=== PATIENT | female | born 1995 | race Caucasian/White ===

== ENCOUNTER → 2019-06-04 11:40 | Outpatient (BNVA) | payer OTHER, SELFPAY | PROVIDERS: Family Provider Family Medicine; PCP Family Medicine; Visit Provider Obstetrics & Gynecology | DX: Z32.01 Encounter for pregnancy test, result positive (principal) | CPT/HCPCS: 81025 ==

== ENCOUNTER → 2019-06-18 10:55 | Outpatient (BNVA) | payer OTHER, SELFPAY | PROVIDERS: Family Provider Family Medicine; PCP Family Medicine; Visit Provider Nurse Practitioner Women's Health | DX: Z01.89 Encounter for other specified special examinations (principal) | CPT/HCPCS: 84315 ==

== ENCOUNTER → 2019-07-02 15:55 | Outpatient (BNVA) | payer OTHER, SELFPAY | PROVIDERS: Family Provider Family Medicine; PCP Family Medicine; Visit Provider Obstetrics & Gynecology | DX: Z34.00 Encounter for supervision of normal first pregnancy, unspecified trimester (principal) | CPT/HCPCS: 80307; 82950; 84315; 84443; 85027; 86592; 86762; 86803; 86850; 86900; 87086; 87340; 87806 ==

== ENCOUNTER 2019-07-06 09:15 | Outpatient (CLI) | payer OTHER, SELFPAY ==
--- NOTE | 2019-07-06 | US_ITS ---
WS: [id number] ULTRASOUND EARLY TECHNIQUE: Transabdominal sonography of the pelvis was performed. Followed by transvaginal sonography to better evaluate the uterus and ovaries. CLINICAL INFORMATION: 10 WEEK GESTATION OF LMP: ? Beta hCG: Unknown. COMPARISON: None. FINDINGS: UTERUS AND GESTATIONAL SAC Intrauterine gestations: Estimated gestational age: 10 weeks 3 days Yolk sac: Present . heart motion: 173 BPM. Subchorionic hemorrhage: None. OVARIES Right ovary: Normal. Left ovary: Normal. FREE FLUID None. 2. Estimated gestational age: 10 weeks 3 days 3. Movement and cardiac activity visualized 4. Ovaries are normal. US/US OB <= 14 weeks fetus [id number] IMPRESSION: 1. Single live intrauterine with pole.
== END 2019-07-06 09:16 | disposition home or self-care (01) ==
PROVIDERS: Family Provider Family Medicine; PCP Family Medicine; Visit Provider Nurse Practitioner Family
DX: Z76.89 Persons encountering health services in other specified circumstances (principal)

== ENCOUNTER 2020-01-27 15:10 | Inpatient (IN) | payer OTHER, SELFPAY ==
[2020-01-27] VITALS (81 sets, daily range): BP systolic 0–148; BP diastolic 0–86; PULSE 68–212; RESP 18; TEMP 36.4–37.1; O2SAT 99–100; BMI 39.1
[2020-01-27] MEDS: dextrose 5%-lactated ringers 1,000 ML 125 ML IV (15:48)
[2020-01-27 17:04] LABS: Basophils % 0.2 %; Eosinophils % 0.3 %; Hematocrit 35.7 % (37.0-47.0); Hemoglobin 12.3 g/dL (11.5-15.3); Lymphocytes # 1.9 10^3/uL (0.8-4.8); Lymphocytes % 14.4 %; Mean Corpuscular HGB Conc 34.5 g/dL (30.0-36.0); Mean Corpuscular Hemoglobin 32.3 pg (28.0-34.0); Mean Corpuscular Volume 93.7 fL (81-99); Mean Platelet Volume 10.4 fL (7.4-10.4); Monocytes % 7.9 %; Neutrophils # 10.09 10^3/uL (1.8-7.7); Neutrophils % 76.8 %; Nucleated Red Blood Cells % 0 %; Platelet Count 233 10^3/cmm (130-400); Red Blood Count 3.81 10^6/uL (4.1-5.3); White Blood Count 13.1 10^3/uL (4.0-10.0)
[2020-01-27] MEDS: lactated ringers 1,000 ML 999 ML IV ×3 (18:15→22:51)
--- NOTE | 2020-01-27 18:30 | P.ANESASSM_ITS ---
Pre-Anesthetic Assessment Pre-Anesthetic Assessment: Height/Weight: Height 1.75 m Weight 120.202 kg Temp Pulse BP Pulse Ox 98.1 F 110 H 97/70 99 01/27/20 16:00 01/27/20 18:26 01/27/20 18:26 01/27/20 18:25 Preop Diagnosis: Labor Pain Proposed Procedure: PAOLO Was Beta Adonis taken within 24 hours: N/A Last Intake: 12:00 Social: Social History: No alcohol and No tobacco Exam: Pre-Anes Outpt Exam: alert, oriented x 3, clear to auscultation bilaterally and regular rate & rhythm Airway: Submandibular: WNL Cervical ROM: WNL MP: 2 Dentition: Full History/ROS: No significant history except as noted and No significant complaints CV/HEM: CV/HEM: None reported : : None reported Hepatic: Hepatic: None reported GI: GI: None reported Metabolic: Metabolic: None reported Musc/skel: Musc/skel: None reported Neuropsych: Neuropsych: Depression Anesthetic Plan: ASA status: 2 Anesthesia: Anesthesia Evaluation and Regional (specify below) Risk of > 500 ml blood loss (7ml/kg in children): No Meds/Allergies Current Medications: Current Medications Generic Name Dose Route Start Last Admin Trade Name Freq PRN Reason Stop Dose Admin Dextrose/Lactated Ringer's 1,000 mls @ 125 m ls/hr 01/27/20 15:15 01/27/20 15:48 Dextrose 5%-Lact ated Ringers IV 125 mls/hr .Q8H PRESTON Administration Lactated Ringer's 1,000 mls @ 999 m ls/hr 01/27/20 17:37 01/27/20 18:15 Lactated Ringers IV 999 mls/hr .Q1H1M PRN Administration ANESTHESIA Ropivacaine 200 mg in 100 mls @ 13 mls/hr 01/27/20 17:45 01/27/20 18:15 Naropin Premix EPIDURAL 13 mls/hr .Q7H42M PRESTON Administration PFSH Anesthesia PFSH: Medical History (Updated 07/02/19 @ 15:03 by Wenceslao Briseno MD) Anxiety was taking zoloft-- stopped use early May 2019 Obesity Surgical History (Updated 07/06/19 @ 19:23 by Wenceslao Briseno MD) History of appendectomy (~2009) Age 14 Family History (Updated 07/06/19 @ 19:24 by Wenceslao Briseno MD) Father Hypertension Grandfather Heart disease Maternal Grandmother Breast cancer Paternal Social History (Updated 07/06/19 @ 19:24 by Wenceslao Briseno MD) Smoking and tobacco status: never smoked Alcohol intake: former Former alcohol use details: social use prior to Female Reproductive History: : 1 Data Anesthesia CBC & Chem 7: 01/27/20 15:30 Other Labs: Laboratory Results - last 48 hr 01/27/20 15:30 WBC 13.1 H RBC 3.81 L Hgb 12.3 Hct 35.7 L MCV 93.7 MCH 32.3 MCHC 34.5 RDW 13.0 Plt Count 233 MPV 10.4 Neut % (Auto) 76.8 Lymph % (Auto) 14.4 [place] % (Auto) 7.9 Eos % (Auto) 0.3 Baso % (Auto) 0.2 Neut # (Auto) 10.09 H Lymph # (Auto) 1.9 [place] # (Auto) 1.0 H Eos # (Auto) 0.0 Baso # (Auto) 0.0 Nucleated RBC % (auto) 0 Nucleated RBCs # 0.0 Cardiac Studies: No Data to Display
--- NOTE | 2020-01-27 18:32 | P.ANES_ITS ---
Anesthesia Procedures Procedure/Date: 01/27/20 Epidural: Time Out Performed: Yes Consents Signed: Procedure Consent Consent: requested by attending/covering physician and from patient Lumbar Level: L3-L4 Epidural position: sitting Epidural procedure: sterile prep of area, 1% lidocaine to numb the area, 18 g needle, neg for paresthesia, test d ose given, 1.5% xylocaine 1:200k epi, 0.2% Ropivacaine bolus ml, placed PCEA, no systemic response, sterile dressing applied, L.U.D. no apparent complications and 0.2% Ropiavacaine @ mls/hr Additional Comments: GEOFF at 7cm. Bolus 6cc Ropiv 0.2% and Fent 100 mcg. infusion at 13 cc /hour. Pt connie well
[2020-01-28] VITALS (28 sets, daily range): BP systolic 0–140; BP diastolic 0–87; PULSE 68–116; RESP 16–18; TEMP 36.5–37.4; O2SAT 97–98
[2020-01-28] MEDS: oxytocin 30 UNIT/500 ML BAG 600 UNIT IV (01:04)
--- NOTE | 2020-01-28 01:50 | PM.DELIVERY ---
Delivery Note: Date of delivery: January 28, 2020 Pre-Delivery Course: The patient is an otherwise healthy 24-year-old 1 female at 40 week estimated gestational age presenting to the hospital with spontaneous rupture of membranes and active labor. The patient is GBS positive. COVID negative. Her glucose screen was negative. Her been unremarkable. Delivery: DELIVERY: The patient progressed to complete without difficulty. She delivered a male with a weight of 8 pounds 0 ounces with Apgars of 8, 9. The baby was delivered from the MARCELA position. The baby's mouth and nose were suctioned at the site of the perineum. The baby was then completely delivered and placed on the mother's abdomen. The cord was then clamped and cut. There was no nuchal cord. There was no meconium. The placenta and 3 vessel cord were delivered intact shortly thereafter. The perineum and vaginal vault were carefully examined. Bilateral vaginal wall lacerations were noted. Both the mother and the baby were in stable condition. Blood loss was 250 MLS Post-Delivery Status: Good A&P Assessment and plan (1) Spontaneous vaginal delivery: Status: Acute (2) Supervision of normal first : Status: Acute Qualifiers: Trimester: first trimester Qualified Code(s): Z34.01 - Encounter for supervision of normal first , first trimester (3) 40 weeks gestation of : Status: Acute Coding Level of Care Code Acute Fabric Coating Supervisor for Chg Fwd Diagnoses Spontaneous vaginal delivery O80 Supervision of normal first Z34.01 Trimester: first trimester 40 weeks gestation of Z3A.40
--- NOTE | 2020-01-28 08:47 | ANE.PACU2 ---
Inpatient post-anesthesia follow up: Airway intact: Yes Vital signs: Temperature 98.5 F Pulse Rate 89 Respiratory Rate 16 Blood Pressure 107/69 Pulse Oximetry 97 Oxygen Delivery Me thod Room Air Oxygen Flow Rate Fraction of Inspir ed Oxygen Hydration adequate: Yes Nausea and vomiting: No Pain level: 1 Mental status: Baseline Additional Comments: no signs of infection at epidural site, no lower extremity numbness/weakness, up and walking, no headaches
[2020-01-28] MEDS: docusate sodium 100 mg Capsule PO ×2 (09:29→18:39)
[2020-01-28] MEDS: prenatal vitamin Capsule 1 CAP PO (09:29)
[2020-01-28 14:22] LABS: Hematocrit 30.7 % (37.0-47.0); Hemoglobin 10.5 g/dL (11.5-15.3); Mean Corpuscular HGB Conc 34.2 g/dL (30.0-36.0); Mean Corpuscular Hemoglobin 32.1 pg (28.0-34.0); Mean Corpuscular Volume 93.9 fL (81-99); Mean Platelet Volume 9.8 fL (7.4-10.4); Platelet Count 219 10^3/cmm (130-400); Red Blood Count 3.27 10^6/uL (4.1-5.3); Red Cell Distribution Width 13.2 % (12.1-15.1); White Blood Count 15.4 10^3/uL (4.0-10.0)
[2020-01-28] MEDS: HYDROcodone-acetaminophen 5-325 mg Tablet PO (18:39)
[2020-01-29 03:20] VITALS: BP 113/73; PULSE 76; RESP 18; TEMP 36.9
[2020-01-29 10:00] VITALS: BP 113/73; PULSE 78; RESP 18; TEMP 36.8; O2SAT 99
[2020-01-29] MEDS: prenatal vitamin Capsule 1 CAP PO (11:54)
[2020-01-29] MEDS: docusate sodium 100 mg Capsule PO (11:54)
[2020-01-29 15:30] VITALS: BP 107/66; PULSE 76; RESP 18; TEMP 36.8; O2SAT 97
--- NOTE | 2020-01-29 16:11 | P.DS_ITS ---
Discharge Providers ACOUSTIC WARFARE ANALYST Date of Admission: 01/27/20 15:10 Date of Discharge: 01/29/20 Attending Provider at Admission: Donnie Billingsley MD Attending Provider at Discharge: Donnie Billingsley MD Primary Care Provider: Katlin Van DO Diagnoses at Discharge Discharge Diagnosis (1) Spontaneous vaginal delivery: Status: Acute (2) Supervision of normal first : Status: Acute Qualifiers: Trimester: first trimester Qualified Code(s): Z34.01 - Encounter for supervision of normal first , first trimester (3) 40 weeks gestation of : Status: Acute Reason for Visit Reason for Visit: Contractions Hospital Course Hospital Course: The patient presented to the hospital with spontaneous rupture of membranes. She was given Cytotec 25 mcg sublingual. She was placed on a group B strep protocol due to her group B strep positive status. She progressed to complete and had an unremarkable delivery of a healthy appearing term . Her course was unremarkable. Her bleeding was within normal limits. Her pain was well controlled. She breast-fed well. Information Peripartum Data: Delivery Method: Vaginal Physical Exam Narrative: EXAM NARRATIVE: The patient is alert. She appears comfortable. Her heart has a regular rate and rhythm with no murmurs appreciated. Lungs are clear to auscultation bilaterally. Her fundus is firm and below the umbilicus. Urinary Catheter Management^: Sequeira: Cath Placed During This Visit: yes Reason for Continuing Indwelling Catheter: Required Immobilization for Trauma or Surgery or Anesthesia Urinary Catheter Date of Insertion: 01/27/20 Urinary Catheter Time of Insertion: 18:40 Discharge Data Vitals: Last Vital Signs Temp 98.2 F 01/29/20 15:30 Pulse 76 01/29/20 15:30 Resp 18 01/29/20 15:30 BP 107/66 01/29/20 15:30 Pulse Ox 97 01/29/20 15:30 Discharge Plan Discharge Patient Disposition: Home Condition: Stable Prescriptions: New ibuprofen 800 mg Tablet 800 mg PO TID Qty: 30 RF: 0 Continued Gummies 400 mcg-35 mg- 25 mg-5 mg tablet,chewable PO BID RF: 0 Zoloft 50 mg Tablet 50 mg PO DAILY RF: 0 Discharge Orders: Discharge Order (Routine); Ordered 01/29/20 Ordered By: Donnie Billingsley Referrals: Donnie Billingsley MD [Physician] - 6 Weeks Discharge Diet: Usual diet Discharge Activity: Limit activity as instructed Patient Instructions: OB Discharge Report, OB Food/Drug Interaction Guide, OB Care at Home, OB Vaginal Deliveries Discharge Attestations ACOUSTIC WARFARE ANALYST Time Spent in Discharge Care*: less than 30 min Coding Level of Care Code Acute Food Services Director for Chg Fwd Diagnoses Spontaneous vaginal delivery O80 Supervision of normal first Z34.01 Trimester: first trimester 40 weeks gestation of Z3A.40
== END 2020-01-29 17:45 | disposition home or self-care (01) | DRG 807 ==
LOC: OPOB 01-28 01:17 → OBGYN 01-28 01:17
PROVIDERS: Admitting Provider Family Medicine; Family Provider Family Medicine; PCP Family Medicine; Visit Provider Family Medicine
DX: O99.824 Streptococcus B carrier state complicating childbirth (principal); Z37.0 Single live birth; O99.344 Other mental disorders complicating childbirth; F41.1 Generalized anxiety disorder; Z3A.40 40 weeks gestation of pregnancy
CPT/HCPCS: 12345; 36415; 51702; 59025; 59409; 85025; 85027; 98960; 99211; J0690; J2795; J3010

== ENCOUNTER 2021-07-20 14:15 | Outpatient (CLI) | payer OTHER, SELFPAY ==
--- NOTE | 2021-07-20 14:30 | US_ITS ---
WS: [id number] ULTRASOUND SOFT TISSUES LEFT axilla HISTORY: LUMP IN LEFT ARMPIT COMPARISON: None available. TECHNIQUE: 2-D and color Doppler imaging is submitted. Ultrasound is performed of the LEFT axilla. There are small benign-appearing lymph nodes. No solid or cystic mass or increased vascularity. US/US soft tissue/extremity [id number] IMPRESSION: Normal LEFT axilla. No adenopathy or solid mass.
== END 2021-07-20 14:16 | disposition home or self-care (01) ==
LOC: RAD 14:22
PROVIDERS: PCP Family Medicine; Visit Provider Family Medicine
DX: R22.32 Localized swelling, mass and lump, left upper limb (principal)
CPT/HCPCS: 76882

== ENCOUNTER 2021-10-19 19:06 | Emergency (ER) | payer OTHER, SELFPAY ==
[2021-10-19 19:23] VITALS: BP 134/84; PULSE 111; RESP 16; TEMP 36.4; O2SAT 100; BMI 35.7
--- NOTE | 2021-10-19 21:39 | ED_ITS ---
HPI - Wound/Laceration General: Chief Complaint: Wound/Laceration Stated Complaint: Lac on L hand Time Seen by Provider: 10/19/21 21:38 History of Present Illness: Ms. Rivas is a 25-year-old previously healthy right-handed lady who presents to the emergency department due to finger injury. She was slicing vegetables with a mandolin when she cut the tip of her left second finger. She immediately applied a rag that she had in the kitchen however bleeding has not stopped and she now has the rag stuck to her finger. Intensity pain at rest is mild to moderate however becomes severe when attempting to remove rag. Quality is stinging. Patient is up-to-date on tetanus shot and denies other recent changes in health. No other specific changes in health, exacerbating, or alleviating factors identified. Extremity Location: Left: hand Place: home Patient tetanus UTD: Yes Context: accidental Associated symptoms: Reports pain Review of Systems General: Reports: 10 or more systems reviewed and unremarkable except in HPI and below PFSH ED PFSH: Medical History Anxiety was taking zoloft-- stopped use early May 2019 Obesity Surgical History History of appendectomy (~2009) Age 14 Family History Father Hypertension Grandfather Heart disease Maternal Grandmother Breast cancer Paternal Social History Smoking and tobacco status: never smoked Alcohol intake: former Former alcohol use details: social use prior to Female Reproductive History: Date of last menstrual period: 09/30/21 Physical Exam Const: COMMON NORMALS: alert GENERAL APPEARANCE: cooperative and well developed HENMT: COMMON NORMALS: normocephalic and atraumatic HEAD & SCALP: normocephalic and atraumatic Eye: COMMON NORMALS: conjunctivae normal CONJUNCTIVA: Yes conjunctivae normal SCLERA: sclerae normal Neck/C-Spine: COMMON NORMALS: supple GENERAL: Yes trachea midline Resp: COMMON NORMALS: normal respiratory effort EFFORT & INSPECTION: Yes able to speak in complete sentences Cardio: COMMON NORMALS: regular rate and regular rhythm RATE: regular rate RHYTHM: regular rhythm GI: COMMON NORMALS: Soft to palpation PALPATION: Yes Soft to palpation and No Tenderness to palpation present (GI) PERCUSSION: normal to percussion Extremity: NARRATIVE EXTREMITY EXAM: L 2nd digit with adan surface laceration of distal tip from just distal to DIP to essentially hyponychia. Slightly obliquely oriented. Missing tissue defect. GENERAL: Yes normal exam except as noted and No edema Neuro: COMMON NORMALS: moves all extremities SENSORIUM/ORIENTATION: Yes alert and No Orientation impaired Psych: COMMON NORMALS: mental status grossly normal and Normal thought process present THOUGHT PROCESS: Normal thought process present Procedures Laceration Laceration 1: Site: hand Side (If applicable): left Description: other (distal adan portion removed/missing) Depth: involves muscle layer (exposed fat/subcutaneous tissue) Local Anesthetic: lidocaine 1% Amount of anesthesia used (mL): 5 Pre-repair: wound explored and irrigated extensively Subcutaneous layer closed with: vicryl Size: 5-0 Number of sutures: 4 Technique: other (figure of 8 for arterial bleeding control) Nerve Block Nerve Block 1: Time out performed: Yes Local Anesthetic: lidocaine 1% Amount of anesthesia used (mL): 3 Side: left Nerve Blocks: digital Procedure Successful: Yes Patient Tolerated Procedure: well Complications: inadequate anesthesia (additional local injection at wound site successful) Course ED course: - Patient was seen and evaluated by me at bedside -Vital signs obtained - Initial evaluation notable for exam as above, digital block performed for removal of rag which was adhered to surface. - Immediately after removal of rag arterial bleeding was noted from the wound bed which was controlled with proximal joint pressure to artery adjacent to middle phalanx. Despite holding pressure for approximately 5 minutes hemostasis was not achieved - Patient required 4 vicryl [id number] sutures to achieve hemostasis. Capillary refill on nailbed slightly reduced however still adequate. Laceration repair was complex and there was not sufficient tissue to perform a repair. Wound to be dressed and patient to follow-up with hand surgery in [place] was contacted and case was discussed. - imaging notable for no acute bony injury - Upon serial reexamination after treatment the patient was improved with analgesia - Based on patient history, evaluation, and testing as interpreted the most likely cause of the patient's condition is complex finger laceration - The results of ED evaluation were discussed with the patient including prescriptions and/or symptomatic cares (if applicable) including appropriate and responsible use, followup plan, and return precautions. The patient verbalized understanding and felt safe for discharge. - Patient discharged in satisfactory condition. Note: Click bubbles or prepopulated cespedes in note writing are used for assistance with data collection and billing and are inherently more limited than narrative and other text portions of this note. Please use narrative for additional clinical history and defer to narrative/free test for any case of contradictory information. If information appears in only free text or click bubble it should be considered present or absent as reported. Please contact note ticket writer for clarifications of clinical information or contradictory information. MDM is a brief summary, contradictory or erroneous seeming information should be clarified and full note should be reviewed. Vital Signs: Vital signs: Vital Signs Temperature 97.6 F 10/19/21 19:23 Pulse Rate 111 H 10/19/21 19:23 Respiratory Rate 18 10/20/21 00:46 Blood Pressure 134/84 10/19/21 19:23 Pulse Oximetry 100 10/19/21 19:23 MDM - Wound/Laceration Medical Decision Making 25-year-old female up-to-date on tetanus prophylaxis presenting due to finger injury. Distal left second digit with large area of tissue defect without flap present. Arterial bleeding present requiring explantation with Vicryl suture. Patient to follow-up with hand surgery. Satisfactory for discharge. Medical Records I reviewed the patient's medical records. Lab Data I reviewed the patient's lab results. Discharge Plan Discharge Patient Disposition: Home Clinical Impression: Laceration of finger of left hand, Arterial hemorrhage Condition: Stable Prescriptions: New oxycodone 5 mg tablet 5 mg PO Q4H PRN (Reason: pain) Qty: 20 0RF cephalexin 500 mg capsule 500 mg PO Q6H 10 Days Qty: 40 0RF No Action Gummies 400 mcg-35 mg- 25 mg-5 mg tablet,chewable PO BID 0RF Zoloft 50 mg Tablet 50 mg PO DAILY 0RF ibuprofen 800 mg Tablet 800 mg PO TID Qty: 30 0RF Discharge Orders: Discharge ED (Routine); Ordered 10/20/21 Ordered By: Adair Abernathy Referrals: Katlin Van DO [Primary Care Provider] - Discharge Diet: Usual diet Discharge Activity: Limit activity as instructed Patient Instructions: Finger Laceration (ED), Opioid Safety Activity Restrictions/Additional Instructions: Thank you for visiting the emergency department. You were seen and evaluated for hand injury. Your finger laceration did require sutures for control of bleeding however is not amenable to primary closure. As discussed, please follow-up with hand surgery, call on Friday. I have included the phone number and address as well as the physician's name however please verify location for follow-up. Please keep dressing on and do not get it wet. Please return to the emergency department for recurrence of heavy bleeding, uncontrolled pain, any signs of infection, or anything else that you are concerned about a feel needs emergency department evaluation. Dr Froy Villafuerte [facility] [address] [facility] [address] [place] [address] Coding Level of Care Code ED Voice Pathologist for Ronal Merchant
[2021-10-19 23:00] VITALS: RESP 20
[2021-10-19] MEDS: morphine 4 mg/mL SDV 1 mL IM (23:00)
[2021-10-20] MEDS: cephALEXin 500 mg Capsule PO (00:44)
[2021-10-20 00:45] VITALS: RESP 18
[2021-10-20] MEDS: oxyCODONE 5 mg IR Tab/Cap PO ×2 (00:45→00:46)
[2021-10-20 00:46] VITALS: RESP 18
== END 2021-10-20 00:59 | disposition home or self-care (01) ==
PROVIDERS: Emergency Provider Emergency Medicine; PCP Family Medicine
DX: S61.211A Laceration without foreign body of left index finger without damage to nail, initial encounter (principal); W27.4XXA Contact with kitchen utensil, initial encounter; R58 Hemorrhage, not elsewhere classified
CPT/HCPCS: 12041; 96372; 99283; J2270

== ENCOUNTER 2022-01-12 18:06 | Emergency (ER) | payer OTHER, SELFPAY ==
[2022-01-12 18:19] VITALS: BP 121/79; PULSE 74; RESP 18; TEMP 36.8; O2SAT 98; BMI 35.4
--- NOTE | 2022-01-12 18:42 | W.ED.GENADLT ---
HPI - General Adult General: Chief complaint: Needlestick/Injury/Exposure Stated complaint: Blood in eye Time Seen by Provider: 01/12/22 18:31 History of Present Illness: Patient is a 26-year-old female that comes to the ED after body fluid exposure. 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 She immediately flushed her left eye out with some water. She states that patient did have a history of hep B but unsure if they were having any active hep B infection. Patient says she is up-to-date on all of her vaccinations. Denies any current symptoms, such as eye pain or vision changes. Associated symptoms: Deny chest pain, dyspnea, headache(s), nausea, rash, palpitations or vomiting Review of Systems Const: Denies: fever(s), chills or fatigue Eyes: Denies: change in vision or eye discomfort ENMT: Denies: throat pain, odynophagia, nasal discharge or nasal congestion Card: Denies: chest pain, palpitations, edema, swelling of feet/ankles, dyspnea on exertion or orthopnea Resp: Denies: dyspnea, productive cough or non-productive cough GI: Denies: abdominal pain, nausea, vomiting, diarrhea, constipation or hematochezia : Denies: flank pain, dysuria or hematuria Musc: Denies: neck pain, back pain or extremity swelling Skin/Breast: Denies: rash or new lesions Neuro: Denies: headache(s), numbness in extremities or weakness in extremities [facility] ED PFSH: Medical History Anxiety was taking zoloft-- stopped use early May 2019 Obesity Surgical History History of appendectomy (~2009) Age 14 Family History Father Hypertension Grandfather Heart disease Maternal Grandmother Breast cancer Paternal Social History Smoking and tobacco status: never smoked Alcohol intake: former Former alcohol use details: social use prior to Female Reproductive History: Date of last menstrual period: 12/29/21 Physical Exam Const: COMMON NORMALS: no acute distress, patient oriented x3, healthy appearing and alert GENERAL APPEARANCE: cooperative and comfortable HENMT: COMMON NORMALS: normocephalic HEAD & SCALP: normocephalic MOUTH: Normal oral and palatal mucosa present THROAT: posterior oropharynx normal and uvula midline Eye: COMMON NORMALS: Equal, round and reactive pupils present and conjunctivae normal CONJUNCTIVA: Yes conjunctivae normal PUPIL: Yes Equal, round and reactive pupils present Neck/C-Spine: COMMON NORMALS: supple GENERAL: Yes normal visual inspection Resp: COMMON NORMALS: normal respiratory effort, No retractions, No use of accessory muscles and clear to auscultation bilaterally AUSCULTATION: clear to auscultation bilaterally Cardio: COMMON NORMALS: regular rate, regular rhythm, S1 normal heart sound present, S2 normal heart sound present, No gallops present (Cardio), No clicks present (Cardio), No murmurs present (Cardio) and Peripheral pulses 2+ throughout RATE: regular rate RHYTHM: regular rhythm HEART SOUNDS: S1 normal heart sound present and S2 normal heart sound present PERIPHERAL PULSES: Peripheral pulses 2+ throughout GI: COMMON NORMALS: Normal to inspection, nondistended, normoactive bowel sounds present, Soft to palpation, non-tender and no masses PALPATION: Yes Soft to palpation : COMMON NORMALS: Yes no CVA tenderness BLADDER/KIDNEY EXAM: Yes no CVA tenderness Back/Pelvis: COMMON NORMALS: no CVA tenderness Extremity: COMMON NORMALS: normal to inspection Neuro: COMMON NORMALS: patient oriented x3 SENSORIUM/ORIENTATION: Yes alert GAIT: Yes Normal gait present Skin: GENERAL SKIN EXAM: dry skin Course Vital Signs: Vital signs: Vital Signs Temperature 98.3 F 01/12/22 18:19 Pulse Rate 74 01/12/22 18:19 Respiratory Rate 18 01/12/22 18:19 Blood Pressure 121/79 01/12/22 18:19 Pulse Oximetry 98 01/12/22 18:19 Oxygen Delivery Me thod 01/12/22 18:19 [facility] - General Adult Medical Decision Making Patient is a 26-year-old female comes to the ED after being exposed to blood and bodily fluids. Patient is a nurse here at [employer] [facility] and some bloods/bodily fluids splashed on her face and got her left eye. She immediately rinsed her eye out with water. Denies any current symptoms. Vitals are stable. Exam is benign. CBC, CMP, hepatitis and HIV panels performed and pending. Patient was stable for discharge home and told to check her patient portal or call [facility] to find out lab results later tonight. She was instructed to have repeat HIV and hepatitis labs performed in about 6 weeks. Return to ED precautions given. Patient understood agree with plan. Discharge Plan Discharge Patient Disposition: Home Clinical Impression: Exposure to blood or body fluid Condition: Stable Prescriptions: No Action Gummies 400 mcg-35 mg- 25 mg-5 mg tablet,chewable PO BID Zoloft 50 mg Tablet 50 mg PO DAILY ibuprofen 800 mg Tablet 800 mg PO TID Qty: 30 0RF oxycodone 5 mg tablet 5 mg PO Q4H PRN (Reason: pain) Qty: 20 0RF Discharge Orders: Discharge ED (Routine); Ordered 01/12/22 Ordered By: Chriss Hernandez Referrals: Katlin Van DO [Primary Care Provider] - Discharge Diet: Regular Discharge Activity: Resume usual activity Patient Instructions: Blood/Body Fluid Exposure - Occupational Activity Restrictions/Additional Instructions: Here lab results should be completed in the next couple hours and you can call back into [facility] or check here portal for lab results. Follow-up with medical provider as directed in the next 4 to 6 weeks to have repeat hepatitis and HIV labs performed. Return to the ER or your medical provider if condition worsens. Please read and understand discharge instructions. [facility]. Please realize this is an emergency room and that we are providing you with a medical screening exam and this may not be complete and all inclusive of all the testing and or work up that you may need to determine your ailment or severity of your illness. It is very important that you follow up as instructed or that you return to the Emergency Department should you have concerns or if your condition changes or worsens in any way. Coding Level of Care Code ED Food Service Team Member for Ronal Merchant Exam Comprehensive
[2022-01-12 18:58] LABS: Basophils % 0.3 %; Eosinophils # 0.2 10^3/uL (0.0-0.8); Eosinophils % 2.3 %; Hemoglobin 13.4 g/dL (11.5-15.3); Lymphocytes % 40.5 %; Mean Corpuscular HGB Conc 35.3 g/dL (30.0-36.0); Mean Corpuscular Hemoglobin 31.8 pg (28.0-34.0); Mean Corpuscular Volume 90.3 fl (81-99); Mean Platelet Volume 9.8 fL (7.4-10.4); Monocytes # 0.6 10^3/uL (0.2-0.9); Monocytes % 7.9 %; Neutrophils # 3.64 10^3/uL (1.8-7.7); Neutrophils % 48.7 %; Nucleated Red Blood Cells % 0 %; Platelet Count 264 10^3/cmm (130-400); Red Blood Count 4.21 10^6/uL (4.1-5.3); Red Cell Distribution Width 11.9 % (12.1-15.1); White Blood Count 7.5 10^3/uL (4.0-10.0)
[2022-01-12 19:22] LABS: Alanine Aminotransferase 17 U/L (0-33); Albumin Level 4.5 g/dL (3.5-5.2); Alkaline Phosphatase 93 U/L (35-105); Aspartate Amino Transferase 12 U/L (0-32); Blood Urea Nitrogen 12 mg/dL (6-20); Calcium 9.5 mg/dL (8.5-10.5); Carbon Dioxide 25 mmol/L (22-29); Chloride 107 mmol/L (98-107); Globulin 2.1 g/dL (1.3-4.6); Glomerular Filtration Rate 150.3 mL/min (90-130); Glucose 99 mg/dL (65-115); Osmolality Calculated 296 mOsm/kg (285-295); Sodium 143 mmol/L (136-145); Total Bilirubin 0.3 mg/dL (0.15-1.2); Total Protein 6.6 g/dL (6.6-8.7)
[2022-01-12 19:32] LABS: Anion Gap 14.8 (5-19); Potassium 3.8 mmol/L (3.5-5.1)
[2022-01-12 19:33] LABS: HIV 1 & 2 Antigen Non-Reactive (Non-Reactiv)
[2022-01-12 19:34] LABS: HIV 1 & 2 Antibody Non-Reactive (Non-Reactiv)
[2022-01-13 00:27] LABS: Hepatitis A Antibody IgM Non-Reactive (Nonreactive); Hepatitis B Core AB, Total Non-Reactive (Nonreactive); Hepatitis B Surface Antigen Non-Reactive (Nonreactive); Hepatitis C Virus Antibody Non-Reactive (Nonreactive)
[2022-01-13 00:28] LABS: Hepatitis B Surface AB < 3.5 (11.5-1000)
== END 2022-01-12 18:53 | disposition home or self-care (01) ==
PROVIDERS: Family Medicine; Emergency Provider Physician Assistant; PCP Family Medicine
DX: Z77.21 Contact with and (suspected) exposure to potentially hazardous body fluids (principal); Y99.0 Civilian activity done for income or pay
CPT/HCPCS: 80053; 85025; 86705; 86706; 86709; 86803; 87340; 87806; 99283

== ENCOUNTER 2022-01-25 16:20 | Emergency (ER) | payer OTHER, SELFPAY ==
[2022-01-25 16:48] VITALS: BP 126/86; PULSE 70; RESP 16; TEMP 36.9; O2SAT 94; BMI 35.4
--- NOTE | 2022-01-25 17:30 | W.ED.SKABFB ---
HPI - Skin/Abscess/Foreign Bdy General: Chief complaint: Needlestick/Injury/Exposure Stated complaint: Needle stick / blood exposure Time Seen by Provider: 01/25/22 17:00 History of Present Illness: Patient is a 26-year-old female who comes to the ED after an accidental needlestick. 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 Patient says that she was working with the patient in the ICU and that was a little combative and she was trying to place an IV. She excellently poked her left index finger with a needle. Patient states that the patient she was working with has a history of hepatitis C. She denies any other complaints. Associated symptoms: Deny chills, fever(s), nausea or vomiting Review of Systems Const: Denies: fever(s), chills or fatigue Eyes: Denies: change in vision or eye discomfort ENMT: Denies: throat pain, odynophagia, nasal discharge or nasal congestion Card: Denies: chest pain, palpitations, edema, swelling of feet/ankles, dyspnea on exertion or orthopnea Resp: Denies: dyspnea, productive cough or non-productive cough GI: Denies: abdominal pain, nausea, vomiting, diarrhea, constipation or hematochezia : Denies: flank pain, dysuria or hematuria Musc: Denies: neck pain, back pain or extremity swelling Skin/Breast: Reports: new lesions (Small puncture wound to the left index finger.); Denies: rash Neuro: Denies: headache(s), numbness in extremities or weakness in extremities [facility] ED PFSH: Medical History Anxiety was taking zoloft-- stopped use early May 2019 Obesity Surgical History History of appendectomy (~2009) Age 14 Family History Father Hypertension Grandfather Heart disease Maternal Grandmother Breast cancer Paternal Social History Smoking and tobacco status: never smoked Alcohol intake: former Former alcohol use details: social use prior to Female Reproductive History: Date of last menstrual period: 01/18/22 Physical Exam Const: COMMON NORMALS: no acute distress, patient oriented x3, healthy appearing and alert GENERAL APPEARANCE: cooperative and comfortable HENMT: COMMON NORMALS: normocephalic HEAD & SCALP: normocephalic MOUTH: Normal oral and palatal mucosa present THROAT: posterior oropharynx normal and uvula midline Neck/C-Spine: COMMON NORMALS: supple GENERAL: Yes normal visual inspection Resp: COMMON NORMALS: normal respiratory effort, No retractions, No use of accessory muscles and clear to auscultation bilaterally AUSCULTATION: clear to auscultation bilaterally Cardio: COMMON NORMALS: regular rate, regular rhythm, S1 normal heart sound present, S2 normal heart sound present, No gallops present (Cardio), No clicks present (Cardio), No murmurs present (Cardio) and Peripheral pulses 2+ throughout RATE: regular rate RHYTHM: regular rhythm HEART SOUNDS: S1 normal heart sound present and S2 normal heart sound present PERIPHERAL PULSES: Peripheral pulses 2+ throughout GI: COMMON NORMALS: Normal to inspection, nondistended, normoactive bowel sounds present, Soft to palpation, non-tender and no masses PALPATION: Yes Soft to palpation : COMMON NORMALS: Yes no CVA tenderness BLADDER/KIDNEY EXAM: Yes no CVA tenderness Back/Pelvis: COMMON NORMALS: no CVA tenderness Extremity: COMMON NORMALS: normal to inspection Neuro: COMMON NORMALS: patient oriented x3 SENSORIUM/ORIENTATION: Yes alert GAIT: Yes Normal gait present Skin: NARRATIVE SKIN EXAM: Small superficial puncture wounds seen on lateral aspect of left index finger. GENERAL SKIN EXAM: dry skin Course Vital Signs: Vital signs: Vital Signs Temperature 98.4 F 01/25/22 16:48 Pulse Rate 70 01/25/22 16:48 Respiratory Rate 16 01/25/22 16:48 Blood Pressure 126/86 01/25/22 16:48 Pulse Oximetry 94 01/25/22 16:48 Oxygen Delivery Me thod 01/25/22 16:48 MDM - Skin/Abscess/Foreign Bdy Medicial Decision Making Patient is a 26-year-old female comes to the ED with accidental needlestick injury. Denies any current symptoms.? Vitals are stable.? Exam is benign.? CBC, CMP, hepatitis and HIV panels performed and pending.? Patient was stable for discharge home and told to check her patient portal or call [facility] to find out lab results later tonight.? She was instructed to have repeat HIV and hepatitis labs performed in about 4-6 weeks.? Return to ED precautions given.? Patient understood agree with plan. Lab Data I reviewed the patient's lab results. : 01/25/22 17:00 01/25/22 17:00 Laboratory Results WBC 9.3 10^3/uL (4.0-10.0) 01/25/22 17:00 RBC 4.35 10^6/uL (4.1-5.3) 01/25/22 17:00 Hgb 13.8 g/dL (11.5-15.3) 01/25/22 17:00 Hct 39.9 % (37.0-47.0) 01/25/22 17:00 MCV 91.7 fl (81-99) 01/25/22 17:00 MCH 31.7 pg (28.0-34.0) 01/25/22 17:00 MCHC 34.6 g/dL (30.0-36.0) 01/25/22 17:00 RDW 11.8 % (12.1-15.1) L 01/25/22 17:00 Plt Count 341 10^3/cmm (130-400) 01/25/22 17:00 MPV 9.4 fL (7.4-10.4) 01/25/22 17:00 Neut % (Auto) 53.8 % 01/25/22 17:00 Lymph % (Auto) 37.4 % 01/25/22 17:00 [place] % (Auto) 5.6 % 01/25/22 17:00 Eos % (Auto) 2.3 % 01/25/22 17:00 Baso % (Auto) 0.4 % 01/25/22 17:00 Neut # (Auto) 4.99 10^3/uL (1.8-7.7) 01/25/22 17:00 Lymph # (Auto) 3.5 10^3/uL (0.8-4.8) 01/25/22 17:00 [place] # (Auto) 0.5 10^3/uL (0.2-0.9) 01/25/22 17:00 Eos # (Auto) 0.2 10^3/uL (0.0-0.8) 01/25/22 17:00 Baso # (Auto) 0.0 10^3/uL (0.0-0.1) 01/25/22 17:00 Nucleated RBC % (auto) 0 % 01/25/22 17:00 Nucleated RBCs # 0.0 /100WBC 01/25/22 17:00 Sodium 138 mmol/L (136-145) 01/25/22 17:00 Potassium 3.9 mmol/L (3.5-5.1) 01/25/22 17:00 Chloride 102 mmol/L (98-107) 01/25/22 17:00 Carbon Dioxide 28 mmol/L (22-29) 01/25/22 17:00 Anion Gap 11.9 (5-19) 01/25/22 17:00 BUN 12 mg/dL (6-20) 01/25/22 17:00 Creatinine 0.6 mg/dL (0.5-0.9) 01/25/22 17:00 GFR Calculation 121.8 mL/min (90-130) 01/25/22 17:00 Glucose 92 mg/dL (65-115) 01/25/22 17:00 Calculated Osmolality 285 mOsm/kg (285-295) 01/25/22 17:00 Calcium 9.5 mg/dL (8.5-10.5) 01/25/22 17:00 Total Bilirubin 0.3 mg/dL (0.15-1.2) 01/25/22 17:00 AST 22 U/L (0-32) 01/25/22 17:00 ALT 41 U/L (0-33) H 01/25/22 17:00 Alkaline Phosphatase 103 U/L (35-105) 01/25/22 17:00 Total Protein 7.0 g/dL (6.6-8.7) 01/25/22 17:00 Albumin 4.2 g/dL (3.5-5.2) 01/25/22 17:00 Globulin 2.8 g/dL (1.3-4.6) 01/25/22 17:00 Hepatitis A IgM Ab Non-reactive (Nonreactive) 01/25/22 17:00 Hep Bs Antigen Non-reactive (Nonreactive) 01/25/22 17:00 Hep Bs Antibody 4.8 (11.5-1000) L 01/25/22 17:00 Hep B Core Total Ab Non-reactive (Nonreactive) 01/25/22 17:00 Hepatitis C Antibody Non-reactive (Nonreactive) 01/25/22 17:00 HIV 1&2 Ab & HIV 1 Ag Non-reactive (Non-Reactiv) 01/25/22 17:00 HIV 1&2 Antibody Non-reactive (Non-Reactiv) 01/25/22 17:00 Discharge Plan Discharge Patient Disposition: Home Clinical Impression: Accidental needlestick injury with exposure to body fluid Condition: Stable Prescriptions: No Action Gummies 400 mcg-35 mg- 25 mg-5 mg tablet,chewable PO BID Zoloft 50 mg Tablet 50 mg PO DAILY ibuprofen 800 mg Tablet 800 mg PO TID Qty: 30 0RF oxycodone 5 mg tablet 5 mg PO Q4H PRN (Reason: pain) Qty: 20 0RF Discharge Orders: Discharge ED (Routine); Ordered 01/25/22 Ordered By: Chriss Hernandez Referrals: Katlin Van DO [Primary Care Provider] - Discharge Diet: Regular Discharge Activity: Resume usual activity Patient Instructions: Blood/Body Fluid Exposure - Occupational, Needle Stick Injuries (ED) Activity Restrictions/Additional Instructions: Follow-up with medical provider as directed in the next 4 weeks to have liver function, hepatitis and HIV labs repeated. Return to the ER or your medical provider if condition worsens. Please read and understand discharge instructions. Thank you for choosing [facility] for your healthcare needs today. Please realize this is an emergency room and that we are providing you with a medical screening exam and this may not be complete and all inclusive of all the testing and or work up that you may need to determine your ailment or severity of your illness. It is very important that you follow up as instructed or that you return to the Emergency Department should you have concerns or if your condition changes or worsens in any way. 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
[2022-01-25 17:31] LABS: Basophils % 0.4 %; Eosinophils # 0.2 10^3/uL (0.0-0.8); Eosinophils % 2.3 %; Hematocrit 39.9 % (37.0-47.0); Hemoglobin 13.8 g/dL (11.5-15.3); Lymphocytes # 3.5 10^3/uL (0.8-4.8); Lymphocytes % 37.4 %; Mean Corpuscular HGB Conc 34.6 g/dL (30.0-36.0); Mean Corpuscular Hemoglobin 31.7 pg (28.0-34.0); Mean Corpuscular Volume 91.7 fl (81-99); Mean Platelet Volume 9.4 fL (7.4-10.4); Monocytes # 0.5 10^3/uL (0.2-0.9); Monocytes % 5.6 %; Neutrophils # 4.99 10^3/uL (1.8-7.7); Neutrophils % 53.8 %; Nucleated Red Blood Cells % 0 %; Platelet Count 341 10^3/cmm (130-400); Red Blood Count 4.35 10^6/uL (4.1-5.3); Red Cell Distribution Width 11.8 % (12.1-15.1); White Blood Count 9.3 10^3/uL (4.0-10.0)
[2022-01-25 18:09] LABS: Alanine Aminotransferase 41 U/L (0-33); Albumin Level 4.2 g/dL (3.5-5.2); Alkaline Phosphatase 103 U/L (35-105); Anion Gap 11.9 (5-19); Aspartate Amino Transferase 22 U/L (0-32); Blood Urea Nitrogen 12 mg/dL (6-20); Calcium 9.5 mg/dL (8.5-10.5); Carbon Dioxide 28 mmol/L (22-29); Chloride 102 mmol/L (98-107); Globulin 2.8 g/dL (1.3-4.6); Glomerular Filtration Rate 121.8 mL/min (90-130); Glucose 92 mg/dL (65-115); Osmolality Calculated 285 mOsm/kg (285-295); Potassium 3.9 mmol/L (3.5-5.1); Sodium 138 mmol/L (136-145); Total Bilirubin 0.3 mg/dL (0.15-1.2)
[2022-01-25 18:54] LABS: HIV 1 & 2 Antibody Non-Reactive (Non-Reactiv); HIV 1 & 2 Antigen Non-Reactive (Non-Reactiv)
[2022-01-25 19:03] LABS: Hepatitis A Antibody IgM Non-Reactive (Nonreactive); Hepatitis B Core AB, Total Non-Reactive (Nonreactive); Hepatitis B Surface AB 4.8 (11.5-1000); Hepatitis B Surface Antigen Non-Reactive (Nonreactive); Hepatitis C Virus Antibody Non-Reactive (Nonreactive)
== END 2022-01-25 17:49 | disposition home or self-care (01) ==
PROVIDERS: Emergency Provider Physician Assistant; PCP Family Medicine
DX: Z77.21 Contact with and (suspected) exposure to potentially hazardous body fluids (principal); S61.231A Puncture wound without foreign body of left index finger without damage to nail, initial encounter; W46.0XXA Contact with hypodermic needle, initial encounter; Y92.230 Patient room in hospital as the place of occurrence of the external cause; Y99.0 Civilian activity done for income or pay
CPT/HCPCS: 80053; 85025; 86705; 86706; 86709; 86803; 87340; 87806; 99283

== ENCOUNTER 2023-04-16 09:59 | Inpatient (IN) | payer OTHER, SELFPAY ==
[2023-04-16] VITALS (54 sets, daily range): BP systolic 98–141; BP diastolic 55–91; PULSE 69–106; RESP 15; TEMP 35.8–36.6; O2SAT 90–99; BMI 40.8; BMI 43.4
[2023-04-16 10:05] LABS: Basophils % 0.2 %; Eosinophils # 0.1 10^3/uL (0.0-0.8); Eosinophils % 0.5 %; Hematocrit 34.4 % (36-47); Lymphocytes # 2.1 10^3/uL (0.8-4.8); Lymphocytes % 22.1 %; Mean Corpuscular HGB Conc 35.5 g/dL (30-55); Mean Platelet Volume 10.4 fL (7.4-10.4); Monocytes # 0.5 10^3/uL (0.2-0.9); Monocytes % 5.1 %; Neutrophils # 6.68 10^3/uL (1.8-7.7); Neutrophils % 71.7 %; Nucleated Red Blood Cells % 0 %; Platelet Count 218 10^3/cmm (157-399); Red Cell Distribution Width 12.8 % (12.1-15.1); White Blood Count 9.33 10^3/uL (3.29-11.43)
[2023-04-16] MEDS: lactated ringers 1,000 ML 999 ML IV (12:56)
[2023-04-16] MEDS: ROPivacaine syringe 100 MG/50 ML SYRINGE 10 MG EPIDURAL ×2 (13:53→16:24)
[2023-04-16] MEDS: dextrose 5%-lactated ringers 1,000 ML 125 ML IV (13:57)
--- NOTE | 2023-04-16 14:03 | P.ANESASSM_ITS ---
Pre-Anesthetic Assessment Height/Weight: Height 1.7 m Weight 125.645 kg Temp Pulse Resp BP Pulse Ox O2 Del Method 96.4 F L 95 15 126/81 98 Room Air 04/16/23 11:04 04/16/23 14:00 04/16/23 09:55 04/16/23 14:00 04/16/23 13:56 04/16/23 10:03 Epidural Familial anesthetic complications: none Social No alcohol and No tobacco Exam alert, oriented x 3, clear to auscultation bilaterally and regular rate & rhythm Airway Mallampati: Class II Dentition: chipped Anesthetic Plan ASA status: 2 Risk of > 500 ml blood loss (7ml/kg in children): Yes, adequate IV access and fluids planned Medications/Allergies Home Medications Medication Instructions Recorded Confirmed Last Taken Type PNV 153-FA 400 mcg-om3 35 mg-dha tab PO BID 06/18/19 07/02/19 01/25/20 22:00 History 25 mg-epa 5 mg-fish oil chew tablet ( Gummies) sertraline 50 mg tablet (Zoloft) 50 mg PO DAILY 01/27/20 01/27/20 01/25/20 22:00 History ibuprofen 800 mg tablet 800 mg PO TID #30 tabs 01/29/20 Unknown Rx oxycodone 5 mg tablet 5 mg PO Q4H PRN pain #20 tabs 10/20/21 Unknown Rx Allergies Allergy/AdvReac Type Severity Reaction Status Date / Time Penicillins Allergy ALGY-Rash Verified 06/18/19 11:17 Current Medications Generic Name Dose Route Start Last Admin Trade Name Yamila PRN Reason Stop Dose Admin Dextrose/Lactated Ringer's 1,000 mls @ 125 mls/hr 04/16/23 10:00 04/16/23 13:57 Dextrose 5%-Lactated Ringers IV 125 mls/hr .Q8H PRESTON Administration Lactated Ringer's 1,000 mls @ 999 mls/hr 04/16/23 12:42 04/16/23 12:56 Lactated Ringers IV 999 mls/hr .Q1H1M PRN Administration See label comments Ropivacaine 100 mg in 50 mls @ 10 mls/hr 04/16/23 12:45 04/16/23 13:53 Naropin Syringe EPIDURAL 10 mls/hr .Q5H PRESTON Administration PFSH Anesthesia Medical History Anxiety was taking zoloft-- stopped use early May 2019 Obesity Surgical History History of appendectomy (~2009) Age 14 Family History Father Hypertension Grandfather Heart disease Maternal Grandmother Breast cancer Paternal Social History Smoking and tobacco/nicotine status: never used tobacco/nicotine Alcohol intake: former Former alcohol use details: social use prior to Substance/Drug Use: never Female Reproductive History : 2 Data Anesthesia 04/16/23 09:30 Short CBC 04/16/23 Range/Units 09:30 WBC 9.33 (3.29-11.43) 10^3/uL Hgb 12.20 (11.27-16.99) g/dL Hct 34.4 L (36-47) % MCV 93.0 (85-98) fl Plt Count 218 (157-399) 10^3/cmm Neut % (Auto) 71.7 % Neut # (Auto) 6.68 (1.8-7.7) 10^3/uL Blood Bank 04/16/23 09:30 Blood Type O Positive Rho(D) Type Rh positive Antibody Screen Negative Cardiac Studies: 2 No Data to Display
--- NOTE | 2023-04-16 14:03 | ANES.PROC ---
Anesthesia Procedures Procedure/Date: 04/16/23 Epidural: Time Out Performed: Yes Consents Signed: Procedure Consent Consent: requested by attending/covering physician, from patient, from other, risks and benefits reviewed and patient agrees to proceed Lumbar Level: L3-L4 Epidural position: sitting Epidural procedure: sterile prep of area, 1% lidocaine to numb the area, 18 g needle, negative for paresthesia passed, neg for paresthesia, test dose given, 1.5% xylocaine 1:200k epi (5), 0.2% Ropivacaine bolus ml (5), placed PCEA, no systemic response, sterile dressing applied, L.U.D. no apparent complications and 0.2% Ropiavacaine @ mls/hr (10) Additional Comments: GEOFF at 6 cm, threaded to 12 cm, patient reported decrease in pain of contraction from 7/10 to 5/10, but still said it was defintely uncomfortable , encouraged bolus use
--- NOTE | 2023-04-16 18:56 | PM.OPHPUD ---
Labor & Delivery H&P Update Date of Procedure: April 16, 2023 Date H&P Performed: 03/31/23 Changes to previous documentation: The patient was 5 cm dilated upon arrival to hospital Admission Diagnosis: The patient is a 27-year-old 2 para 1-0-0-1 at 40 weeks and 3 days who presented to the hospital in active labor. Other information: The patient presented to the hospital after she had been having contractions for several hours . She did not notice any leakage of fluid. She was noted to be 5 cm dilated. As result she was admitted for being in labor. Her had otherwise been unremarkable. Her labs were unremarkable. Her blood type was O+. Her antibody screen was negative her her glucose screen was 142 but she passed her 3-hour she is rubella immune. She is GBS negative. The remainder of her infectious disease profile was within normal limits.
--- NOTE | 2023-04-16 18:59 | PM.DELIVERY ---
Delivery Note: Date of delivery: April 16, 2023 Pre-delivery diagnoses: 27-year-old 2 para 1-0-0-1 at 40 weeks and 3 days in active labor Post-delivery diagnoses: Status post spontaneous vaginal delivery Procedure: Spontaneous vaginal delivery Delivering Physician: Donnie Billingsley Estimated blood loss (mL): 100 Pre-Delivery Course: The patient presented to the hospital having contractions about every 5 minutes. She had no leakage of fluid. As result she was admitted. An epidural was placed. Just prior to delivery an amniotomy was performed. Delivery: DELIVERY: The patient progressed to complete without difficulty. She delivered a male with a weight of 8 pounds 14 ounces with Apgars of 8, 9. The baby was delivered from the MARCELA position and placed on the mother's abdomen. The cord was then clamped and cut. There was no nuchal cord. Light meconium was noted. The placenta and 3 vessel cord were delivered intact shortly thereafter. The perineum and vaginal vault were carefully examined. The patient had a superficial first-degree laceration near her urethra. Otherwise there are no other lacerations.. Both the mother and the baby were in stable condition. Post-Delivery Status: Good History History History 2 Term 2 0 Miscarriages/Ectopic 0 Living Children 2 A&P Assessment and plan (1) 40 weeks gestation of : I anticipate routine care. (2) Spontaneous vaginal delivery: Coding Level of Care Code Acute Code for Chg Fwd Diagnoses 40 weeks gestation of Z3A.40 Spontaneous vaginal delivery O80
[2023-04-16] MEDS: oxytocin 30 UNIT/500 ML BAG 600 UNIT IV (19:03)
[2023-04-16] MEDS: lanolin oint 7 gm 1 APPLIC TOPICAL (20:55)
[2023-04-16] MEDS: ibuprofen 800 mg tablet PO (20:55)
[2023-04-17 02:45] VITALS: BP 132/80; PULSE 72; RESP 18; O2SAT 97
[2023-04-17 05:01] VITALS: BP 112/75; PULSE 71; RESP 17
[2023-04-17 05:08] LABS: Hematocrit 31.8 % (36-47); Mean Corpuscular HGB Conc 35.2 g/dL (30-55); Mean Corpuscular Hemoglobin 32.7 pg (27-33); Platelet Count 175 10^3/cmm (157-399); Red Blood Count 3.42 10^6/uL (3.85-5.65); Red Cell Distribution Width 12.8 % (12.1-15.1); White Blood Count 10.42 10^3/uL (3.29-11.43)
--- NOTE | 2023-04-17 07:36 | PM.OBGYDC ---
Discharge Providers CONSULTING SALES MANAGER Date of Admission: 04/16/23 09:59 Date of Discharge: 04/17/23 Attending Provider at Admission: Donnie Billingsley MD Attending Provider at Discharge: Donnie Billingsley MD Primary Care Provider: Donnie Billingsley Diagnoses at Discharge Discharge Diagnosis (1) 40 weeks gestation of : Status: Acute (2) Spontaneous vaginal delivery: Status: Acute Reason for Visit Reason for Visit: contractions Hospital Course Hospital Course The patient arrived to the hospital in active labor. An epidural was placed. An amniotomy was performed just prior to delivery. The delivery was unremarkable. There were no complications. Her course was also unremarkable. Bleeding was within normal limits. She breast-fed well. Her pain was within normal limits. Information Peripartum Data: Infant Delivery Method: Vaginal Physical Exam Narrative: The patient is alert. She appears comfortable. Her heart has a regular rate and rhythm with no murmurs appreciated. Lungs are clear to auscultation bilaterally. Her fundus is firm and below the umbilicus. Urinary Catheter Management: [place]: Cath Placed During This Visit: yes, but has since been removed by the nurse Reason for Continuing Indwelling Catheter: Decision to DC Catheter Urinary Catheter Date of Insertion: 04/16/23 Urinary Catheter Time of Insertion: 13:35 Date Urinary Catheter Removed: 04/16/23 Time Urinary Catheter Discontinued: 18:05 History History History 2 Term 2 0 Miscarriages/Ectopic 0 Living Children 2 Discharge Data Studies Completed and Pending Laboratory Results WBC 10.42 10^3/uL (3.29-11.43) 04/17/23 04:57 RBC 3.42 10^6/uL (3.85-5.65) L 04/17/23 04:57 Hgb 11.20 g/dL (11.27-16.99) L 04/17/23 04:57 Hct 31.8 % (36-47) L 04/17/23 04:57 MCV 93.0 fl (85-98) 04/17/23 04:57 MCH 32.7 pg (27-33) 04/17/23 04:57 MCHC 35.2 g/dL (30-55) 04/17/23 04:57 RDW 12.8 % (12.1-15.1) 04/17/23 04:57 Plt Count 175 10^3/cmm (157-399) 04/17/23 04:57 MPV 10.0 fL (7.4-10.4) 04/17/23 04:57 Neut % (Auto) 71.7 % 04/16/23 09:30 Lymph % (Auto) 22.1 % 04/16/23 09:30 [place] % (Auto) 5.1 % 04/16/23 09:30 Eos % (Auto) 0.5 % 04/16/23 09:30 Baso % (Auto) 0.2 % 04/16/23 09:30 Neut # (Auto) 6.68 10^3/uL (1.8-7.7) 04/16/23 09:30 Lymph # (Auto) 2.1 10^3/uL (0.8-4.8) 04/16/23 09:30 [place] # (Auto) 0.5 10^3/uL (0.2-0.9) 04/16/23 09:30 Eos # (Auto) 0.1 10^3/uL (0.0-0.8) 04/16/23 09:30 Baso # (Auto) 0.0 10^3/uL (0.0-0.1) 04/16/23 09:30 Nucleated RBC % (auto) 0 % 04/16/23 09:30 Nucleated RBCs # 0.0 /100WBC 04/16/23 09:30 Blood Type O Positive 04/16/23 09:30 Rho(D) Type Rh positive 04/16/23 09:30 Antibody Screen Negative 04/16/23 09:30 Vitals Last Vital Signs Temp 96.4 F L 04/16/23 11:04 Pulse 71 04/17/23 05:01 Resp 17 04/17/23 05:01 BP 112/75 04/17/23 05:01 Pulse Ox 97 04/17/23 02:45 O2 Del Method Room Air 04/17/23 02:45 Results Labs OB ([facility]): Blood Type O Positive 04/16/23 Antibody Screen Negative 04/16/23 Hct 31.8 % (36-47) L 04/17/23 Hgb 11.20 g/dL (11.27-16.99) L 04/17/23 Rho(D) Type Rh positive 04/16/23 Plt Count 175 10^3/cmm (157-399) 04/17/23 Hep Bs Antigen Non-reactive (Nonreactive) 07/15/22 Hep B Core Total Ab Non-reactive (Nonreactive) 01/25/22 Hep Bs Antibody 3.5 (11.5-1000) L 07/15/22 Hepatitis C Antibody Non-reactive (Nonreactive) 07/15/22 Rubella IgG Antibody 12.6 IU/mL (0.0-9.0) H 07/02/19 RPR Nonreactive (Nonreactive) 07/02/19 HIV 1&2 Ab & HIV 1 Ag Non-reactive (Non-Reactiv) 07/15/22 TSH 1.61 uIU/mL (0.27-4.20) 07/02/19 Glucose 1 Hr 50 gm 110 mg/dL (85-140) 07/02/19 HCG, Qual Positive (Negative) H 06/04/19 Urine Opiates Screen Negative ng/mL (Negative) 07/02/19 Ur Barbiturates Screen Negative ng/mL (Negative) 07/02/19 Ur Phencyclidine Scrn Negative ng/mL (Negative) 07/02/19 Ur Amphetamines Screen Negative ng/mL (Negative) 07/02/19 U Benzodiazepines Scrn Negative ng/mL (Negative) 07/02/19 Urine Cocaine Screen Negative ng/mL (Negative) 07/02/19 U Marijuana (THC) Screen Negative ng/mL (Negative) 07/02/19 Micro Urine Specimen 07/02/19 Discharge Plan Discharge Patient Disposition: Home Condition: Stable Prescriptions: Continued Gummies 400 mcg-35 mg- 25 mg-5 mg tablet,chewable 1 tab PO BID sertraline [Zoloft] 50 mg Tablet 50 mg PO DAILY labetalol 100 mg Tablet 100 mg PO 1XD ibuprofen 800 mg Tablet 800 mg PO TID Qty: 45 0RF Discontinued oxycodone 5 mg tablet 5 mg PO Q4H PRN (Reason: pain) Qty: 20 0RF Discharge Orders: Discharge Order (Routine); Ordered 04/17/23 Ordered By: Donnie Billingsley Referrals: Donnie Billingsley MD [Physician] - 05/30/23 11:50 am Discharge Diet: Usual diet Discharge Activity: Resume usual activity Patient Instructions: Depression (DC), Bleeding (DC), Preeclampsia and Eclampsia After Delivery (GEN), OB Discharge Report, OB Food/Drug Interaction Guide, OB Care at Home, Opioid Safety, OB Home Care, OB Vaginal Deliveries, Abnormal Bleeding Discharge Attestations CONSULTING SALES MANAGER Time Spent in Discharge Care*: less than 30 min Coding Level of Care Code Acute Code for Chg Fwd Diagnoses 40 weeks gestation of Z3A.40 Spontaneous vaginal delivery O80
[2023-04-17] MEDS: ibuprofen 800 mg tablet PO ×3 (07:58→19:26)
[2023-04-17] MEDS: docusate sodium 100 mg Capsule PO ×2 (07:59→19:26)
[2023-04-17] MEDS: prenatal vitamin Capsule 1 CAP PO (07:59)
[2023-04-17 09:20] VITALS: BP 132/88; PULSE 85; TEMP 36.8; O2SAT 97
[2023-04-17] MEDS: HYDROcodone-acetaminophen 5-325 mg Tablet PO (12:20)
[2023-04-17 16:34] VITALS: BP 129/88; PULSE 81; TEMP 36.7; O2SAT 99
[2023-04-17 20:50] VITALS: BP 123/86; PULSE 80; RESP 16; TEMP 36.9; O2SAT 97
--- NOTE | 2023-04-18 08:07 | ANE.PACU2 ---
Inpatient post-anesthesia follow up: Airway intact: Yes Vital signs: Temperature 98.5 F Pulse Rate 80 Respiratory Rate 16 Blood Pressure 123/86 Pulse Oximetry 97 Oxygen Delivery Me thod Room Air Oxygen Flow Rate Fraction of Inspir ed Oxygen Hydration adequate: Yes Pain level: 1 Mental status: Baseline
== END 2023-04-17 20:50 | disposition home or self-care (01) | DRG 807 ==
LOC: OPOB 10:01 → OBGYN 10:01
PROVIDERS: Admitting Provider Family Medicine; Visit Provider Family Medicine
DX: O48.0 Post-term pregnancy (principal); Z37.0 Single live birth; Z3A.40 40 weeks gestation of pregnancy; O99.344 Other mental disorders complicating childbirth; F41.9 Anxiety disorder, unspecified; O70.0 First degree perineal laceration during delivery
CPT/HCPCS: 36415; 51702; 59025; 59409; 85025; 85027; 86850; 86900; 99211; J2590; J2795; J7120; J7121

== ENCOUNTER → 2024-08-12 18:37 | Outpatient (BNVA) | payer OTHER, SELFPAY | PROVIDERS: Visit Provider Family Medicine | DX: M79.672 Pain in left foot (principal) | CPT/HCPCS: 73630 ==

== ENCOUNTER 2024-09-06 09:22 | Outpatient (CLI) | payer OTHER, SELFPAY ==
--- NOTE | 2024-09-06 09:30 | MRR_ITS ---
PROCEDURE INFORMATION: Exam: MR Left Lower Extremity Other Than Joint Without Contrast; Foot Exam date and time: 09/06/2024 9:38 AM Age: 28 years old Clinical indication: Injury or trauma; Other: Fell off porch; Blunt trauma; Injury details: Patient states that 1 month ago she fell off of her porch and injured her left foot; Additional info: Evaluation of medial cuneiform FX, eval tendons and ligament TECHNIQUE: Imaging protocol: Magnetic resonance imaging of the left lower extremity without contrast. Exam focused on the foot. COMPARISON: CR XR foot LT min 3V* [id number] 08/26/2024 9:49 AM FINDINGS: Bones/joints: Moderate bone marrow edema in the medial cuneiform is identified, with evidence of a mildly displaced fracture of the mid to inferior aspect, best demonstrated on series 8 between images 14 and 17. Moderate plantar calcaneal enthesophyte formation is identified. LIGAMENTS: Lisfranc ligament: Unremarkable. No evidence of tear. TENDONS: Flexor tendons of foot: Unremarkable. No evidence of tear. Tibialis posterior tendon: Mild abnormal fluid in the tibialis posterior tendon sheath is noted. Peroneal tendons: Unremarkable as visualized. Extensor tendons of foot: Unremarkable. No evidence of tear. Tibialis anterior tendon: Unremarkable as visualized. Tarsal canal (Sinus tarsi): Unremarkable. Tarsal tunnel: Unremarkable. Soft tissues: Mild subcutaneous edema in the dorsum of the foot is present. Plantar fascia: Unremarkable as visualized. MR/MR foot LT wo con* [id number] IMPRESSION: 1. Minimally displaced acute to subacute appearing fracture of the medial cuneiform. 2. Mild tibialis posterior tenosynovitis.
== END 2024-09-06 09:23 | disposition home or self-care (01) ==
LOC: RAD 09:24
PROVIDERS: PCP Nurse Practitioner Family; Visit Provider Podiatrist Foot & Ankle Surgery
DX: S92.242A Displaced fracture of medial cuneiform of left foot, initial encounter for closed fracture (principal); X58.XXXA Exposure to other specified factors, initial encounter
CPT/HCPCS: 73718

== ENCOUNTER → 2024-09-27 11:27 | Outpatient (BNVA) | payer OTHER, SELFPAY | PROVIDERS: PCP Nurse Practitioner Family; Visit Provider Podiatrist Foot & Ankle Surgery | DX: M79.672 Pain in left foot (principal); S92.245D Nondisplaced fracture of medial cuneiform of left foot, subsequent encounter for fracture with routine healing; W19.XXXD Unspecified fall, subsequent encounter; Y92.009 Unspecified place in unspecified non-institutional (private) residence as the place of occurrence of the external cause | CPT/HCPCS: 73630 ==

== ENCOUNTER → 2024-10-12 12:42 | Outpatient (BNVA) | payer OTHER, SELFPAY | PROVIDERS: PCP Nurse Practitioner Family; Visit Provider Podiatrist Foot & Ankle Surgery | DX: S92.245D Nondisplaced fracture of medial cuneiform of left foot, subsequent encounter for fracture with routine healing (principal); W19.XXXD Unspecified fall, subsequent encounter; Y92.009 Unspecified place in unspecified non-institutional (private) residence as the place of occurrence of the external cause | CPT/HCPCS: 73630 ==